=== PATIENT | female | born 1980 | race Caucasian/White ===

== ENCOUNTER → 2021-02-02 15:34 | Outpatient (CLI) | payer SELFPAY | PROVIDERS: Visit Provider Nurse Practitioner | DX: Z20.822 Contact with and (suspected) exposure to COVID-19 (principal) | CPT/HCPCS: C9803; U0003; U0005 ==

== ENCOUNTER → 2021-06-19 08:48 | Outpatient (CLI) | payer BC, SELFPAY ==
[2021-06-20 07:00] LABS: Covid-19 Nasal PCR Sendout Lex NOT DETECTED
== END ==
PROVIDERS: Visit Provider Nurse Practitioner
DX: Z20.822 Contact with and (suspected) exposure to COVID-19 (principal)
CPT/HCPCS: C9803; U0004; U0005

== ENCOUNTER → 2022-01-12 10:49 | Outpatient (CLI) | payer BC, SELFPAY ==
[2022-01-12 11:58] LABS: Strep Scrn Group A (Rapid) Negative (Negative)
== END ==
PROVIDERS: PCP Family Medicine; Visit Provider Family Medicine
DX: Z20.822 Contact with and (suspected) exposure to COVID-19 (principal)
CPT/HCPCS: 87430; C9803; U0003; U0005

== ENCOUNTER → 2022-03-23 15:19 | Outpatient (CLI) | payer BC, SELFPAY ==
--- NOTE | 2022-03-23 15:22 | MM_ITS ---
PROCEDURE INFORMATION: Exam: Bilateral Screening 3D Mammography Exam date and time: 03/23/2022 3:13 PM Age: 41 years old Clinical indication: Baseline. No family history of breast cancer. TECHNIQUE: Imaging protocol: Bilateral Screening tomosynthesis and 2D mammography including computer-aided detection (CAD) when performed. COMPARISON: No relevant prior studies available. FINDINGS: MAMMOGRAPHY: Breast composition: The breasts are extremely dense, which lowers the sensitivity of mammography. Mass: None. Architectural distortion: None. Calcifications: For the the regional calcifications in the left upper outer quadrant middle 3rd. Asymmetric density: None. Skin thickening: None. Axillary adenopathy: None. IMPRESSION: Patient to be recalled for left diagnostic magnification views in CC and true lateral for further evaluation of left breast calcifications. ASSESSMENT: BI-RADS Category 0: Incomplete- Need Additional Imaging Evaluation and/or Prior Mammograms for Comparison
== END ==
PROVIDERS: PCP Family Medicine; Visit Provider Family Medicine
DX: Z12.31 Encounter for screening mammogram for malignant neoplasm of breast (principal)
CPT/HCPCS: 77063; 77067

== ENCOUNTER → 2022-04-02 14:18 | Outpatient (CLI) | payer BC, SELFPAY ==
--- NOTE | 2022-04-02 14:23 | MM_ITS ---
PROCEDURE INFORMATION: Exam: MG Left Diagnostic Breast Tomosynthesis Exam date and time: 04/02/2022 2:17 PM Age: 41 years old Clinical indication: Recall on the basis of screening mammogram 03/23/2022 for further evaluation of calcifications in the left upper outer quadrant. TECHNIQUE: Imaging protocol: Left Diagnostic tomosynthesis and 2D mammography including computer-aided detection (CAD) when performed. Unilateral or bilateral exam. COMPARISON: MG MM DIG SCREENING MAMM BI W/CAD 03/23/2022 3:13 PM FINDINGS: MAMMOGRAPHY: Magnification views in the left upper outer quadrant demonstrate that many of the regional calcifications layer in a benign microcyst pattern, with a few punctate calcifications, and no suspicious morphology. IMPRESSION: Probably benign calcifications, many layer in a benign microcyst pattern, suggest six-month follow-up left diagnostic magnification views in CC and true lateral, unless otherwise clinically indicated. ASSESSMENT: BI-RADS Category 3: Probably benign
== END ==
PROVIDERS: PCP Family Medicine; Visit Provider Family Medicine
DX: R92.8 Other abnormal and inconclusive findings on diagnostic imaging of breast (principal)
CPT/HCPCS: 77061; 77065; G0279

== ENCOUNTER → 2022-10-04 14:43 | Outpatient (CLI) | payer OTHER, SELFPAY ==
--- NOTE | 2022-10-04 14:49 | MM_ITS ---
PROCEDURE INFORMATION: Exam: MG Left Diagnostic Breast Tomosynthesis Exam date and time: 10/04/2022 2:40 PM Age: 42 years old Clinical indication: Short-term radiographic followup; Left breast; calcifications TECHNIQUE: Imaging protocol: Left Diagnostic tomosynthesis and 2D mammography including computer-aided detection (CAD) when performed. Unilateral or bilateral exam. COMPARISON: 1. MG MM DIG MAMM DX UNILAT LT CAD 04/02/2022 2:17 PM 2. MG MM DIG SCREENING MAMM BI W/CAD 03/23/2022 3:13 PM FINDINGS: MAMMOGRAPHY: The breast tissue is extremely dense, which lowers the sensitivity of mammography. There is no stellate mass or architectural distortion to suggest malignancy. Magnification views of the posterior left lateral breast demonstrate stable segmental predominantly round in ovoid calcifications without tight clustering or significant pleomorphism. No skin thickening or axillary adenopathy. IMPRESSION: Stable calcifications in the left breast compared to prior mammogram dated 04/02/2022. A six-month follow-up diagnostic bilateral mammogram with magnification views of the left breast are recommended for continued close surveillance of the left-sided calcifications as well as part of an annual screening schedule ASSESSMENT: BI-RADS Category 3: Probably benign
== END ==
PROVIDERS: PCP Family Medicine; Visit Provider Family Medicine
DX: R92.8 Other abnormal and inconclusive findings on diagnostic imaging of breast (principal)
CPT/HCPCS: 77061; 77065; G0279

== ENCOUNTER → 2023-04-10 13:55 | Outpatient (CLI) | payer OTHER, SELFPAY ==
--- NOTE | 2023-04-10 14:01 | MM_ITS ---
PROCEDURE INFORMATION: Exam: MG Bilateral Diagnostic Breast Tomosynthesis Exam date and time: 04/10/2023 1:59 PM Age: 42 years old Clinical indication: Continued short-term surveillance of left breast calcifications TECHNIQUE: Imaging protocol: Bilateral Diagnostic tomosynthesis and 2D mammography including computer-aided detection (CAD) when performed. Unilateral or bilateral exam. COMPARISON: 1. MG MM DIG MAMM DX UNILAT LT CAD 10/04/2022 2:40 PM 2. MG MM DIG MAMM DX UNILAT LT CAD 04/02/2022 2:17 PM FINDINGS: MAMMOGRAPHY: The breasts are heterogeneously dense, which may obscure small masses. There is no stellate mass or architectural distortion in either breast to suggest malignancy. Magnification views of the posterior left lateral breast demonstrates stable segmental round and oval calcifications. No skin thickening or axillary adenopathy. IMPRESSION: Stable calcifications in the posterior left lateral breast compared to prior mammograms dating back to and including 04/02/2022. A six-month follow-up diagnostic left mammogram with magnification views are recommended for continued close surveillance ASSESSMENT: BI-RADS Category 3: Probably benign
== END ==
LOC: RAD 13:56
PROVIDERS: PCP Family Medicine; Visit Provider Family Medicine
DX: R92.8 Other abnormal and inconclusive findings on diagnostic imaging of breast (principal)
CPT/HCPCS: 77062; 77066; G0279

== ENCOUNTER 2023-08-20 10:41 | Outpatient (CLI) | payer BC, SELFPAY ==
[2023-08-20 11:37] LABS: Basophils # 0.1 K/mm3 (0-0.2); Basophils % 1.4 % (0.1-2.0); Eosinophils # 0.1 K/mm3 (0.0-0.4); Eosinophils % 2.4 % (0.1-12.0); Hematocrit 39.9 % (37.0-47.0); Hemoglobin 12.4 g/dL (12.2-16.2); Lymphocytes # 1.2 K/mm3 (0.7-4.5); Lymphocytes % 25.7 % (10-50); Mean Corpuscular HGB Conc 31.1 g/dL (31.8-35.4); Mean Corpuscular Hemoglobin 28.3 pg (27.0-31.2); Mean Corpuscular Volume 90.8 fl (81-99); Monocytes # 0.3 K/mm3 (0.1-1.0); Monocytes % 7.4 % (1.7-9.3); Neutrophils # 2.9 K/mm3 (1.8-7.8); Platelet Count 411 K/mm3 (142-424); Red Blood Count 4.39 M/mm3 (4.20-5.40); Red Cell Distribution Width 13.7 % (11.5-17.5); White Blood Count 4.6 K/mm3 (4.8-10.8)
[2023-08-20 11:42] LABS: Anion Gap 8.3 mEq/L (5-15); Blood Urea Nitrogen 11 mg/dl (7-17); Calcium 9.1 mg/dl (8.4-10.2); Carbon Dioxide 29 mmol/L (22.0-30.0); Chloride 106 mmol/L (98-107); Estimated Glomerular Filt Rate 110 ml/min (>60); GFR (African American) 133 ML/MIN (>60); Glucose 92 mg/dl (74-100); Potassium 4.3 mmoL/L (3.5-5.1); Sodium 139 mmol/L (136-145)
== END 2023-08-20 23:59 ==
LOC: LAB 10:42
PROVIDERS: PCP Physician Assistant; Visit Provider Surgery
DX: K60.2 Anal fissure, unspecified (principal)
CPT/HCPCS: 36415; 80048; 85025

== ENCOUNTER 2023-09-02 09:59 | Day surgery (SDC) | payer BC, SELFPAY ==
[2023-09-02] MEDS: LACTATED RINGERS 1000ML 1,000 ML 25 ML IV (10:23)
[2023-09-02 10:25] VITALS: BP 112/64; PULSE 86; RESP 18; TEMP 36.6; O2SAT 100
--- NOTE | 2023-09-02 11:00 | EXP.ANES.CKL ---
[facility] Disclaimer: The information contained in this section may have been updated after the patient was seen, as this information can be updated by other users. Medical History Hemorrhoids OCD (obsessive compulsive disorder) Surgical History (Updated 09/02/23 @ 10:23 by Khanh Trujillo RN) H/O wisdom tooth extraction Family History Other FHx: mental illness Hyperlipidemia Hypertension Social History Smoking Status: Never smoker alcohol intake: never substance use type: denies use current occupational status: employed Travel in the last 8 weeks: None [facility] Anesthesia Checklist Patient Identification Patient Identification: Arm Band Structural Data Admitted From: Home Planned Operative Procedure/s: Exam Under Anesthesia, Fistulotomy, Possible [place] Placement Consent for Planned Operative Procedure(s) Verified: Yes Verified Documents: Surgical Consent and History and Physical NPO Status Verified Time NPO: 00:00 Additional verifications Anesthesia Reactions: No Hx Blood Transfusions: No Blood Transfusion Reaction: No Airway Assessment Mallampati Score:: Class II C-Spine Mobility Assessed: Yes TMJ Mobility Assessed: Yes Dentition: Good Dentition Neurological Assessment Level of Consciousness: Awake and Alert Anesthesia Plan Anesthesia Risk discussed: Yes Anesthesia Plan: Verified ASA Class: I Anesthesia Type: General
[2023-09-02 11:38] LABS: HCG Qualitative, Serum Negative (Negative)
[2023-09-02] MEDS: CLINDAMYCIN PHOSPHATE/D5W 900 MG/50 ML PIGGYBACK 106 MG IV (12:33)
[2023-09-02] MEDS: BUPIVACAINE 0.5% W/EPI 1:200,000 30ML VIAL 30 ML IJ ×2 (13:04)
--- NOTE | 2023-09-02 13:13 | EXP.OP.NOTE ---
Date of procedure: 09/02/23 Pre-op Diagnosis:: Perianal fistula Post-op Diagnosis:: Same Procedure performed:: Exam under anesthesia with subcutaneous anal fistulotomy Surgeon:: Deangelo Sanchez MD Anesthesia: LMA Estimated blood loss (mL): 5 Operative findings:: She had findings consistent with a subcutaneous anal fistula in the left posterior lateral location. However, internal opening was not clearly defined. Operative note:: Consent was obtained patient was taken to the operating room. She was positioned in supine position. General anesthesia was induced. She was positioned in modified lithotomy position. Area was prepped and draped in the standard surgical fashion. She had a clear external opening in the perianal location at the left anterior lateral position. Digital anal examination reveals some pus expressing from this location. [place] anoscope was inserted. Blunt probe was inserted with careful manipulation. There was tract in the subcutaneous plane directly towards the region of the dentate line. However there was no clear internal opening. Given the persistent purulent drainage plan was made for unroofing. Using fine-tipped needle Bov[place] beginning at the external opening the skin was incised and the underlying tract was opened towards the intra anal location. Aggressive fistulotomy was not performed. The fistulotomy site was then probed in all directions to assess for any fistulous tracts of which none were noted. Fistulotomy wound was then curetted with a small curette. Hemostasis was achieved with electrocautery. Local anesthetic was infiltrated. Gelfoam roll soaked in topical anesthetic was inserted into the anal canal. Absorbent pad was applied. Condition: stable Disposition: PACU Complications:: None immediate
[2023-09-02 13:16] VITALS: BP 124/76; PULSE 98; RESP 12; TEMP 36.8; O2SAT 99
[2023-09-02 13:26] VITALS: BP 132/82; PULSE 99; RESP 12; TEMP 36.8; O2SAT 97
[2023-09-02 13:36] VITALS: BP 132/80; PULSE 111; RESP 12; TEMP 36.8; O2SAT 100
[2023-09-02 13:46] VITALS: BP 129/72; PULSE 102; RESP 12; TEMP 36.8; O2SAT 100
== END 2023-09-02 13:05 | disposition home or self-care (01) ==
PROVIDERS: PCP Family Medicine; Visit Provider Surgery
PROC: (CPT 46275; principal; 2023-09-02 11:30)
DX: K60.3 Anal fistula (principal)
CPT/HCPCS: 46275; 84703

== ENCOUNTER 2023-10-21 12:45 | Outpatient (CLI) | payer BC, SELFPAY ==
--- NOTE | 2023-10-21 12:49 | MM_ITS ---
PROCEDURE INFORMATION: Exam: MG Left Diagnostic Breast Tomosynthesis Exam date and time: 10/21/2023 12:50 PM Age: 43 years old Clinical indication: Short-term radiographic followup; Left breast; calcifications TECHNIQUE: Imaging protocol: Left Diagnostic tomosynthesis and 2D mammography including computer-aided detection (CAD) when performed. Unilateral or bilateral exam. COMPARISON: 1. MG MM DIG MAMM BI DX W/CAD 04/10/2023 1:59 PM 2. MG MM DIG MAMM DX UNILAT LT CAD 10/04/2022 2:40 PM FINDINGS: MAMMOGRAPHY: Breast composition: The breast is heterogeneously dense, which may obscure small masses. Breast mammogram findings: There is no stellate mass or architectural distortion to suggest malignancy. Magnification views of the posterior left lateral breast demonstrates stable calcifications. These most likely reflect benign layering type. No skin thickening or axillary adenopathy. IMPRESSION: Stable calcifications in the left breast compared to prior mammograms dating back to and including 04/02/2022. A six-month follow-up diagnostic bilateral mammogram with magnification views of the left breast are recommended to ensure long-term stability of the calcifications as well as part of an annual screening schedule ASSESSMENT: BI-RADS Category 3: Probably benign.
== END 2023-10-21 23:59 | disposition home or self-care (01) ==
LOC: RAD 12:46
PROVIDERS: PCP Family Medicine; Visit Provider Family Medicine
DX: R92.8 Other abnormal and inconclusive findings on diagnostic imaging of breast (principal)
CPT/HCPCS: 77061; 77065; G0279

== ENCOUNTER 2023-10-30 08:45 | Outpatient (CLI) | payer BC, SELFPAY ==
--- NOTE | 2023-10-30 08:46 | CT_ITS ---
FINAL REPORT TECHNIQUE: Axial images were obtained from the iliac crest to the pubic symphysis by computed tomography pre-and postcontrast administration. Coronal and sagittal reformats were submitted. This study was performed with techniques to keep radiation doses as low as reasonably achievable (ALARA). Individualized dose reduction techniques using automated exposure control or adjustment of mA and/or kV according to the patient''s size were employed. CLINICAL HISTORY: anal fistula repair 6 weeks ago, drainage FINDINGS: Small amount of free fluid is noted, may be physiologic or reactive. There is mild rectal wall thickening, likely inflammatory. No focal fluid collection is seen to suggest an abscess. IMPRESSION: No evidence of abscess. Mild rectal wall thickening, likely inflammatory. Reviewed, Interpreted and Dictated by Deangelo Matute III, MD Transcribed by Myah Kapadia Authenticated and [facility]
[2023-10-30] MEDS: IOPAMIDOL-370 (76%);100ML BOTTLE 75 ML IV (09:06)
[2023-10-30] MEDS: SODIUM CHLORIDE 0.9% 10ML SYR (RAD ONLY) 10 ML IV (09:06)
== END 2023-10-30 23:59 | disposition home or self-care (01) ==
LOC: RAD 08:46
PROVIDERS: PCP Family Medicine; Visit Provider Surgery
DX: K60.3 Anal fistula (principal)
CPT/HCPCS: 72194; Q9967

== ENCOUNTER 2024-04-15 09:29 | Outpatient (CLI) | payer BC, SELFPAY ==
--- NOTE | 2024-04-15 | US_ITS ---
PROCEDURE INFORMATION: Exam: US Left Breast, Complete US Right Breast, Complete MG Bilateral Diagnostic Breast Tomosynthesis Exam date and time: 04/15/2024 9:56 AM Age: 43 years old Clinical indication: Follow-up of the left breast for calcifications, palpable area of concern in the right breast. TECHNIQUE: Imaging protocol: Complete ultrasound of all four quadrants of the left breast and the retroareolar regions, including ultrasound of the axilla when performed. Complete ultrasound of all four quadrants of the right breast and the retroareolar regions, including ultrasound of the axilla when performed. Bilateral Diagnostic tomosynthesis and 2D mammography including computer-aided detection (CAD) when performed. Unilateral or bilateral exam. COMPARISON: MG MM DIG MAMM DX UNILAT LT CAD 10/21/2023 12:50 PM FINDINGS: MAMMOGRAPHY: Breast composition: The breasts are extremely dense, which lowers the sensitivity of mammography. Breast mammogram findings: Magnification views of the left breast demonstrates stable calcifications, unchanged since 04/02/2022. Stability over 2 years is consistent with a benign process. There are no new or suspicious calcifications, suspicious masses, areas of architectural distortion, or lymphadenopathy in either breast. Area of palpable concern, right breast upper outer quadrant, demonstrates no underlying mammographic abnormality. ULTRASOUND: Breast ultrasound findings: Targeted ultrasound the right breast in the palpable area concern, 10 o'clock axis, 9 cm from the nipple demonstrates a hypoechoic oval mass with parallel orientation measuring 0.7 x 0 2 x 0.5 cm, likely a lymph node. No distortion or shadowing. No axillary adenopathy. Complete scanning of the left breast is performed. A benign lymph node is seen in the 3 o'clock axis, 12 cm from the nipple measuring 1 cm. No axillary adenopathy. No suspicious solid mass, shadowing, or distortion. IMPRESSION: 1. Calcifications in the left breast are stable since March of 2022 and are therefore considered benign. 2. Probably benign lymph node in the right breast 10 o'clock axis, 9 cm from the nipple that correlates to the palpable area of concern. Six-month follow-up right breast ultrasound is recommended. Further evaluation of a palpable abnormality should be based on clinical grounds regardless of radiographic findings or lack thereof. 3. The breast demonstrates no sonographic evidence malignancy. ASSESSMENT: BI-RADS Category 3: Probably benign.
--- NOTE | 2024-04-15 10:44 | US_ITS ---
FINAL REPORT CLINICAL HISTORY: soft tissue mass of shoulder FINDINGS: Limited sonographic images were obtained of the soft tissues of the anterior left shoulder at the area of palpable abnormality. There is an oval avascular hypoechoic abnormality at the area of interest with similar echogenicity to adjacent fat. This is favored to represent a lipoma. IMPRESSION: Palpable abnormality favored represent lipoma. Reviewed, Interpreted and Dictated by Fiona Watson MD Transcribed by Renita Patton Authenticated and [facility]
[2024-04-15 12:34] LABS: Microscopic, Urine URINE MICROSCOPIC (MICROSCOPIC)
[2024-04-15 12:51] LABS: Basophils # 0.1 K/mm3 (0-0.2); Basophils % 0.8 % (0.1-2.0); Eosinophils # 0.1 K/mm3 (0.0-0.4); Eosinophils % 1.3 % (0.1-12.0); Hematocrit 38.9 % (37.0-47.0); Hemoglobin 13.2 g/dL (12.2-16.2); Lymphocytes % 14.9 % (10-50); Mean Corpuscular HGB Conc 33.9 g/dL (31.8-35.4); Mean Corpuscular Hemoglobin 30.2 pg (27.0-31.2); Mean Corpuscular Volume 89.2 fl (81-99); Mean Platelet Volume 7.8 fl (7.4-10.4); Monocytes # 0.5 K/mm3 (0.1-1.0); Monocytes % 7.5 % (1.7-9.3); Neutrophils # 5.2 K/mm3 (1.8-7.8); Neutrophils % 75.6 % (37.0-80.0); Platelet Count 430 K/mm3 (142-424); Red Blood Count 4.36 M/mm3 (4.20-5.40); Red Cell Distribution Width 13.6 % (11.5-17.5); White Blood Count 6.8 K/mm3 (4.8-10.8)
[2024-04-15 13:30] LABS: Alanine Aminotransferase 17 U/L (12-78); Albumin Level 4.3 g/dl (3.5-5.0); Albumin/Globulin Ratio 1.3 (1.1-1.8); Alkaline Phosphatase 53 U/L (38-126); Anion Gap 13.1 mEq/L (5-15); Aspartate Amino Transferase 29 U/L (14-36); Bilirubin,Total 0.4 mg/dl (0.2-1.3); Blood Urea Nitrogen 11 mg/dl (7-17); Calcium 9.1 mg/dl (8.4-10.2); Carbon Dioxide 23 mmol/L (22.0-30.0); Chloride 105 mmol/L (98-107); Chol/HDL Ratio 2.6 (1-3.5); Cholesterol 199 mg/dl (140-200); Estimated Glomerular Filt Rate 92 ml/min (>60); GFR (African American) 111 ML/MIN (>60); Globulin 3.3 g/dL (1.3-3.2); Glucose 76 mg/dl (74-100); HDL Cholesterol 78 mg/dl (40-60); Potassium 4.1 mmoL/L (3.5-5.1); Sodium 137 mmol/L (136-145); Total Protein,Serum 7.6 g/dl (6.3-8.2); Triglycerides 56 mg/dl (30-150); VLDL Cholesterol 11 mg/dL (0-40)
[2024-04-15 13:41] LABS: Direct LDL Cholesterol 101.54 mg/dL (100-129)
[2024-04-15 13:48] LABS: 25-OH Vitamin D, Total 52.2 ng/mL (30-100)
[2024-04-15 13:51] LABS: Free T4 (Free Thyroxine) 1.19 ng/dl (0.78-2.19)
[2024-04-15 14:01] LABS: Thyroid Stimulating Hormone 2.78 uIU/mL (0.465-4.68)
[2024-04-15 14:05] LABS: Appearance,Urine CLEAR (Clear); Bilirubin,Urine Negative (Negative); Blood, Urine Negative (Negative); Color,Urine YELLOW (Yellow); Glucose,Urine (UA) Negative (Negative); Ketones,Urine Negative (Negative); Leukocyte Esterase,Urine Negative (Negative); Nitrate,Urine Negative (Negative); Protein,Urine Negative (Negative); Urobilinogen,Urine 0.2 EU/dl (0.2)
[2024-04-15 14:20] LABS: Vitamin B12 889 pg/mL (239-931)
[2024-04-15 14:26] LABS: Bacteria,Urine Trace /lpf; Squamous Epithelial Cell,Urine Occasional #/hpf (0-5)
[2024-04-15 14:49] LABS: Iron 84 ug/dL (37-170)
[2024-04-15 14:58] LABS: Total Iron Binding Capacity 402 ug/dL (265-497)
[2024-04-15 15:25] LABS: Ferritin 9.19 ng/ml (6.24-137)
[2024-04-15 16:13] LABS: HIV (1&2) Antibody Rapid NONREACTIVE (NONREACTIVE)
[2024-04-15 17:02] LABS: Hemoglobin A1C 5.1 % (4.0-6.0)
[2024-04-16 08:32] LABS: HCV Ab Non Reactive (Non Reactive)
== END 2024-04-15 23:59 | disposition home or self-care (01) ==
LOC: RAD 09:30
PROVIDERS: Nurse Practitioner Family; PCP Physician Assistant; Visit Provider Physician Assistant
DX: R92.8 Other abnormal and inconclusive findings on diagnostic imaging of breast (principal); N63.11 Unspecified lump in the right breast, upper outer quadrant; R53.83 Other fatigue; F41.9 Anxiety disorder, unspecified; E55.9 Vitamin D deficiency, unspecified; E53.8 Deficiency of other specified B group vitamins; Z13.1 Encounter for screening for diabetes mellitus; Z13.220 Encounter for screening for lipoid disorders; Z11.4 Encounter for screening for human immunodeficiency virus [HIV]; Z11.59 Encounter for screening for other viral diseases
CPT/HCPCS: 76641; 76882; 77062; 77066; 80050; 80053; 80061; 81001; 82306; 82607; 82728; 83036; 83540; 83550; 84439; 84443; 85025; 86803; 87086; 87389; G0279

== ENCOUNTER 2024-10-01 13:32 | Outpatient (CLI) | payer MEDICAID, SELFPAY ==
--- NOTE | 2024-10-01 15:00 | US_ITS ---
PROCEDURE INFORMATION: Exam: US Right Breast, Complete Exam date and time: 10/01/2024 1:43 PM Age: 44 years old Clinical indication: Follow-up from prior for probably benign right breast lymph node. TECHNIQUE: Imaging protocol: Complete ultrasound of all four quadrants of the right breast and the retroareolar regions, including ultrasound of the axilla when performed. COMPARISON: US BREAST RT COMPLETE 04/15/2024 10:12 AM FINDINGS: ULTRASOUND: Breast ultrasound findings: At 10 o'clock 10 cm from the nipple there is a stable probable intramammary lymph node measuring 0.5 x 0.7 x 0.2 cm no abnormal lymph nodes in the axilla. IMPRESSION: Stable probable intramammary lymph node in the right breast , unchanged since 04/15/2024 and probably benign. Recommend six-month follow-up right breast ultrasound and bilateral diagnostic mammogram to ensure stability. ASSESSMENT: BI-RADS Category 3: Probably benign.
== END 2024-10-01 23:59 | disposition home or self-care (01) ==
LOC: RAD 13:32
PROVIDERS: PCP Nurse Practitioner Family; Visit Provider Nurse Practitioner Family
DX: N63.10 Unspecified lump in the right breast, unspecified quadrant (principal)
CPT/HCPCS: 76641